=== PATIENT | male | born 1970 | race Caucasian/White ===

== ENCOUNTER → 2018-02-05 09:18 | Outpatient (CLI) | payer MEDICAID, SELFPAY ==
--- NOTE | 2018-02-05 09:20 | US_ITS ---
US abdomen limited Ordering Physician: Kit Velazquez MD Patient Age: 47 years: Male HISTORY: ITS.REASON: Right upper quad pain TECHNIQUE: Ultrasound RUQ abdomen. COMPARISON :None FINDINGS Pancreas. Limited visualization but what is seen at head and body and medial tail the pancreas appears satisfactory Liver. No focal lesions no biliary ductal dilatation. Portal vein normal direction flow Gallbladder. Minimal Sludge gallbladder but no calcified or shadowing stones. ... Gallbladder upper are normal size measuring 7.5 cm-8 length.. No wall thickening Right kidney unremarkable. Normal Size measuring 10 cm length. IMPRESSION: No gallstones.. Only scant Sludge in the gallbladder. Otherwise unremarkable RUQ ultrasound
== END ==
PROVIDERS: Family Provider Emergency Medicine; PCP Emergency Medicine; Visit Provider Emergency Medicine
DX: R10.11 Right upper quadrant pain (principal)
CPT/HCPCS: 76705

== ENCOUNTER 2020-09-10 03:54 | Emergency (ER) | payer OTHER, SELFPAY ==
[2020-09-10] VITALS (7 sets, daily range): BP systolic 149–202; BP diastolic 83–140; PULSE 90–110; RESP 16–19; TEMP 36.7–36.8; O2SAT 97–100; BMI 26.6
--- NOTE | 2020-09-10 03:59 | CT_ITS ---
PROCEDURE: CT HEAD/BRAIN WO CON CLINICAL INDICATION: ams Altered mental status, altered level of consciousness, confusion, disorientation COMPARISON: No exams were available for comparison TECHNIQUE: Axial images obtained. All CT scans at the facility use one or more dose reduction, viz: automated exposure control, ma/kV adjustment per patient size (including targeted exams where dose is matched to indication, i.e. head), or iterative reconstruction technique. FINDINGS: There are low-density changes present in the left temporal lobe anteriorly. No underlying hemorrhage. No midline shift. No evidence of hydrocephalus. There is moderate mucosal thickening of the ethmoid sinuses on both sides there is an air-fluid level in the right maxillary sinus with mild bilateral maxillary sinus mucosal thickening and mild sphenoid sinus mucosal thickening. Mastoid sinuses have an unremarkable appearance. No calvarial abnormalities apparent. There is also mucosal thickening in the frontal sinuses having a somewhat lobular contour. IMPRESSION: Low-density changes in the left temporal lobe. This could be due to an underlying infarction or a space occupying lesion with edema. Suggest enhanced head CT in ER setting. No acute intracranial hemorrhage. MRI of the brain without and with contrast may eventually be needed. Sinus disease Dictated by: Tigre Dickinson MD 09/10/2020 05:51 Tigre Dickinson MD in [facility] 09/10/2020 05:51
--- NOTE | 2020-09-10 03:59 | XR_ITS ---
PROCEDURE: XR CHEST PORTABLE CLINICAL HISTORY: ams History of heart disease, history of recurrent chest pain unstable angina COMPARISON: CR CXR CHEST(2 VIEWS-NOT PORTABLE) from 06/12/2016 CR CXR CHEST(2 VIEWS-NOT PORTABLE) from 10/10/2016 CR CXR CHEST(2 VIEWS-NOT PORTABLE) from 06/09/2017 FINDINGS: The cardiomediastinal silhouette and pulmonary vascularity are within normal limits. The lungs are clear without infiltrates, suspicious nodules, or pleural effusions. No acute bony abnormalities. IMPRESSION: No acute findings. Dictated by: Tigre Dickinson MD 09/10/2020 05:14 Tigre Dickinson MD in [facility] 09/10/2020 05:14
--- NOTE | 2020-09-10 04:05 | PC.NURSE ---
restraints placed due to multiple attempts to swing and hit at staff, pull out IV's and F/C despite redirection attempts. pt continues to yell, kick and hit, cursing staff. one on one observation at this time. residential housekeeper notified
[2020-09-10 04:09] LABS: Microscopic, Urine URINE MICROSCOPIC (MICROSCOPIC)
[2020-09-10 04:16] LABS: Basophils # 0.1 K/mm3 (0-0.2); Basophils % 0.7 % (0.1-2.0); Eosinophils # 0.2 K/mm3 (0.0-0.4); Eosinophils % 1.4 % (0.1-12.0); Hematocrit 49.4 % (42.0-52.0); Lymphocytes # 1.3 K/mm3 (0.7-4.5); Lymphocytes % 9.3 % (10-50); Mean Corpuscular HGB Conc 32.4 g/dL (31.8-35.4); Mean Corpuscular Hemoglobin 28.7 pg (27.0-31.2); Mean Corpuscular Volume 88.5 fl (80-94); Monocytes # 0.6 K/mm3 (0.1-1.0); Monocytes % 4.1 % (1.7-9.3); Neutrophils # 11.8 K/mm3 (1.8-7.8); Neutrophils % 84.5 % (37.0-80.0); Platelet Count 373 K/mm3 (142-424); Red Blood Count 5.58 M/mm3 (4.60-6.20); Red Cell Distribution Width 12.8 % (11.5-17.5); White Blood Count 13.9 K/mm3 (4.8-10.8)
[2020-09-10 04:19] LABS: Chloride 104 mmol/L (98-107); Potassium 4.5 mmoL/L (3.5-5.1); Sodium 142 mmol/L (136-145)
--- NOTE | 2020-09-10 04:19 | PC.NURSE ---
patient eating ice chips,
[2020-09-10 04:20] LABS: Appearance,Urine CLEAR (Clear); Bilirubin,Urine Negative (Negative); Blood, Urine 1+ (Negative); Color,Urine YELLOW (Yellow); Glucose,Urine (UA) Negative (Negative); Ketones,Urine Negative (Negative); Leukocyte Esterase,Urine Negative (Negative); Nitrate,Urine Negative (Negative); PH,Urine 5.5 (5.0-8.5); Protein,Urine Negative (Negative); Specific Gravity, Urine 1.025 (1.005-1.030); Urobilinogen,Urine 0.2 EU/dl (0.2)
[2020-09-10 04:21] LABS: Blood Urea Nitrogen 10 mg/dl (9-20); Creatinine Clearance Estimated 101 mL/min (50-200); Estimated Glomerular Filt Rate 80 ml/min (>60); GFR (African American) 97 ML/MIN (>60)
[2020-09-10 04:22] LABS: Alanine Aminotransferase 26 U/L (12-78); Albumin Level 5.2 g/dl (3.5-5.0); Albumin/Globulin Ratio 1.5 (1.1-1.8); Alkaline Phosphatase 92 U/L (38-126); Anion Gap 26.5 mEq/L (5-15); Aspartate Amino Transferase 33 U/L (17-59); Bilirubin,Total 0.4 mg/dl (0.2-1.3); Calcium 9.7 mg/dl (8.4-10.2); Carbon Dioxide 16 mmol/L (22.0-30.0); Globulin 3.5 g/dL (1.3-3.2); Glucose 123 mg/dl (74-100); Total Protein,Serum 8.7 g/dl (6.3-8.2)
[2020-09-10 04:23] LABS: Acetaminophen < 10 ug/ml (10-30); Salicylate < 1.0 mg/dL (2.0-20.0)
[2020-09-10 04:24] LABS: Ethyl Alcohol < 10 mg/dl (0-10)
[2020-09-10 04:28] LABS: C-Reactive Protein 1.6 mg/L (0-4)
[2020-09-10 04:30] LABS: Barbiturates Screen,Urine Negative ng/ml (<200); Benzodiazepines Screen,Urine Positive ng/ml (<200)
[2020-09-10 04:32] LABS: Cannabinoid Screen,Urine Positive ng/ml (<50); Methadone Screen,Urine Negative ng/ml (<300)
[2020-09-10 04:33] LABS: Cocaine Screen,Urine Negative ng/ml (<300)
[2020-09-10 04:34] LABS: Lactic Acid 11.4 mmol/L (0.7-2.1)
[2020-09-10 04:35] LABS: Opiate Screen,Urine Negative ng/ml (<300); Phencyclidine Screen,Urine Negative ng/ml (<25)
[2020-09-10 04:39] LABS: Coronavirus 19 IgG Antibody Negative (Negative); Coronavirus 19 IgM Antibody Negative (Negative)
[2020-09-10 04:40] LABS: Mucus,Urine 1+ /lpf
--- NOTE | 2020-09-10 04:45 | PC.NURSE ---
restraints removed at this time. good removed at this time.
[2020-09-10 04:49] LABS: Procalcitonin 0.052 ng/mL (0.0-2.0)
[2020-09-10 04:50] LABS: Troponin I < 0.01 ng/ml (0.00-0.034)
--- NOTE | 2020-09-10 04:58 | PC.NURSE ---
is at bedside w/ pt/.
[2020-09-10 05:22] LABS: Erythrocyte Sedimentation Rate 13 mm/hr (0-15)
--- NOTE | 2020-09-10 05:28 | PC.NURSE ---
pt taken to ct at this time via stretcher. third loader assisting rad due to patient's presentation.
--- NOTE | 2020-09-10 05:43 | PC.NURSE ---
back from ct at this time.
--- NOTE | 2020-09-10 05:49 | CT_ITS ---
PROCEDURE: CT HEAD/BRAIN W CON CLINICAL INDICATION: altered mental status Abnormal head CT with stroke versus mass in the left temporal lobe COMPARISON: CT CT HEAD/BRAIN WO CON from 09/10/2020 TECHNIQUE: IV Contrast: 100ML Isovue 370 Axial images obtained. All CT scans at the facility use one or more dose reduction, viz: automated exposure control, ma/kV adjustment per patient size (including targeted exams where dose is matched to indication, i.e. head), or iterative reconstruction technique. FINDINGS: Enhanced head CT is performed to further evaluate the low-density changes in the left temporal lobe. There remains low-density changes in the left temporal lobe. No enhancing mass is evident. There is prominence of the vascularity peripheral to low-density changes in the left temporal lobe suggesting luxury perfusion from subacute infarction. There is no midline shift. No other abnormal areas of enhancement are evident. Sinus disease once again noted. IMPRESSION: Low-density changes in the left temporal lobe once again noted with luxury perfusion consistent with subacute infarction. Dictated by: Tigre Dickinson MD 09/10/2020 06:33 Tigre Dickinson MD in [facility] 09/10/2020 06:33
--- NOTE | 2020-09-10 05:51 | HMH.EDAMS ---
ED Disposition Clinical Impression: Acute drug intoxication with delirium, Amphetamine abuse CVA (cerebral vascular accident) Qualifiers: CVA mechanism: unspecified Qualified Code(s): I63.9 - Cerebral infarction, unspecified Disposition: Home, Self-Care Condition on Discharge: Fair Instructions: DI for Altered Mental Status Additional Instructions: see pcp for follow up Referrals: Kit Velazquez MD [Primary Care Provider] - - Critical Care Critical Care Time: No Attestation: On 09/10/20, the high probability of a clinically significant, sudden or life threatening deterioration of the following system(s) required my full and direct attention, intervention and personal management. The time I documented below is in addition to time spent performing reported procedures but includes the following listed in this critical care notation. Medical Decision Making - Medical Records Medical records reviewed: Yes: I reviewed the patient's medical records. - Pancho Inquiry Pt receiving controlled substance: No Vital Signs: 09/10/20 03:45 09/10/20 04:33 09/10/20 05:00 Temperature 98.2 F Temperature Source Oral Pulse Rate [Right Brachial] 110 H 110 H 98 H Respiratory Rate 16 16 17 Blood Pressure [Right Arm] 149/83 H 202/140 H 156/100 H Blood Pressure Mean [Right Arm] 105 160 118 Blood Pressure Source [Right Arm] Automatic Cuff Automatic Cuff Blood Pressure Position [Right Arm] Sitting Sitting Sitting 02 Sat by Pulse Oximetry 98 98 97 Oxygen Delivery Method Room Air Room Air Room Air 09/10/20 05:30 09/10/20 06:03 09/10/20 06:30 Temperature Temperature Source Pulse Rate [Right Brachial] 98 H 90 90 Respiratory Rate 19 18 19 Blood Pressure [Right Arm] 155/92 H 162/84 H 180/110 H Blood Pressure Mean [Right Arm] 113 110 133 Blood Pressure Source [Right Arm] Automatic Cuff Automatic Cuff Blood Pressure Position [Right Arm] Sitting Supine 02 Sat by Pulse Oximetry 100 98 99 Oxygen Delivery Method Room Air Room Air - Lab Data Lab results reviewed: Yes: I reviewed the patient's lab results. Lab Results 09/10/20 03:45: Urine Color Yellow, Urine Appearance Clear, Urine pH 5.5, Ur Specific Floweree 1.025, Urine Protein Negative, Urine Glucose (UA) Negative, Urine Ketones Negative, Urine Blood 1+, Urine Nitrate Negative, Urine Bilirubin Negative, Urine Urobilinogen 0.2, Ur Leukocyte Esterase Negative, Urine RBC 3-5, Urine Mucus 1+ 09/10/20 03:45: WBC 13.9 H, RBC 5.58, Hgb 16.0, Hct 49.4, MCV 88.5, MCH 28.7, MCHC 32.4, RDW 12.8, Plt Count 373, MPV 7.0 L, Neut % (Auto) 84.5 H, Lymph % (Auto) 9.3 L, Isabella % (Auto) 4.1, Eos % (Auto) 1.4, Baso % (Auto) 0.7, Neut # (Auto) 11.8 H, Lymph # (Auto) 1.3, Isabella # (Auto) 0.6, Eos # (Auto) 0.2, Baso # (Auto) 0.1, ESR 13 09/10/20 03:45: Sodium 142, Potassium 4.5, Chloride 104, Carbon Dioxide 16 L, Anion Gap 26.5 H, BUN 10, Creatinine 1.00, Estimated Creat Clear 101, Estimated GFR 80, Est GFR ( Amer) 97, Glucose 123 H, Calcium 9.7, Total Bilirubin 0.4, AST 33, ALT 26, Alkaline Phosphatase 92, Troponin I < 0.01, C-Reactive Protein 1.6, Total Protein 8.7 H, Albumin 5.2 H, Globulin 3.5 H, Albumin/Globulin Ratio 1.5, Procalcitonin 0.052, Salicylates < 1.0 L, Acetaminophen < 10 L 09/10/20 03:45: Lactate 11.4 H 09/10/20 03:45: SARS-CoV-2 IgG Ab (Rapid) Negative, SARS-CoV-2 IgM Ab (Rapid) Negative 09/10/20 03:45: Urine Opiates Screen Negative, Urine Methadone Screen Negative, Ur Barbituates Screen Negative, Ur Phencyclidine Scrn Negative, Ur 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
[2020-09-10 08:08] LABS: Reflex Lactic Add Lactic Reflex
== END 2020-09-10 07:20 | disposition home or self-care (01) ==
PROVIDERS: Emergency Provider Emergency Medicine; PCP Emergency Medicine
DX: I63.9 Cerebral infarction, unspecified (principal); F15.121 Other stimulant abuse with intoxication delirium; F12.10 Cannabis abuse, uncomplicated; M54.5 Low back pain; K21.9 Gastro-esophageal reflux disease without esophagitis; I10 Essential (primary) hypertension; Z01.84 Encounter for antibody response examination; Z79.899 Other long term (current) drug therapy
CPT/HCPCS: 70450; 70460; 71045; 80053; 80305; 80324; 80329; 81001; 83605; 84145; 84484; 85025; 85651; 86140; 86328; 87040; 87077; 96365; 99284; Q9967

== ENCOUNTER → 2020-10-05 12:42 | Outpatient (CLI) | payer OTHER, SELFPAY ==
--- NOTE | 2020-10-05 12:44 | CA_ITS ---
APPROVED REPORT Cloth Printer: CT Laterality: Bilateral Indications: syncope, cva Risk Factors Hypertension: TIA/CVA History Doppler Spectral Velocity Analysis ECA (R) 87.30/ cm/s ECA (L) 126.00/ cm/s dICA (R) 89.30/47.50 cm/s dICA (L) 79.60/41.10 cm/s Saúl (R) 84.10/43.00 cm/s Saúl (L) 81.50/46.20 cm/s pICA (R) 95.70/48.20 cm/s pICA (L) 83.50/38.50 cm/s dCCA (R) 66.80/26.30 cm/s dCCA (L) 99.50/35.20 cm/s pCCA (R) 117.60/36.40 cm/s pCCA (L) 107.70/37.40 cm/s Vert (R) 39.70/ cm/s Vert (L) 36.20/ cm/s ICA/CCA 1.40 ICA/CCA 0.80 Findings Duplex evaluation demonstrates stenosis of the right proximal internal carotid artery <20% with PSV <140 cm/sec, EDV <100 cm/sec, and IC/CC Ratio <4.0. Duplex evaluation demonstrates stenosis of the left proximal internal carotid artery <20% with PSV <140 cm/sec, EDV <100 cm/sec, and IC/CC Ratio <4.0. Duplex evaluation demonstrates antegrade flow of the bilateral Vertebral Arteries. Conclusion Duplex evaluation demonstrates stenosis of the right proximal internal carotid artery <20% with PSV <140 cm/sec, EDV <100 cm/sec, and IC/CC Ratio <4.0. Duplex evaluation demonstrates stenosis of the left proximal internal carotid artery <20% with PSV <140 cm/sec, EDV <100 cm/sec, and IC/CC Ratio <4.0. Duplex evaluation demonstrates antegrade flow of the bilateral Vertebral Arteries. Electronically signed by : Ivan Chester MD 10/06/2020 19:59:40
== END ==
PROVIDERS: PCP Emergency Medicine; Visit Provider Emergency Medicine
DX: R55 Syncope and collapse (principal); I63.9 Cerebral infarction, unspecified
CPT/HCPCS: 93880

== ENCOUNTER → 2020-11-14 08:05 | Outpatient (CLI) | payer OTHER, SELFPAY ==
--- NOTE | 2020-11-14 08:09 | MR_ITS ---
PROCEDURE: MR THORACIC SPINE WO CON CLINICAL INDICATION: back pain COMPARISON: CR CXR CHEST(2 VIEWS-NOT PORTABLE) from 06/09/2017 TECHNIQUE: Routine multiplanar multi echo sequences are performed without gadolinium enhancement. FINDINGS: There is normal alignment. Moderate wedge compression changes are present involving the T5 vertebral body. There is loss of height anteriorly of approximately 50 percent. The mid and anterior aspect of the T5 vertebral body shows decreased T1 and slight increase in T2 signal. There is no retropulsion. There is however a small hypointense area of isointensity anterior to the cord and lying along the posterior aspect of the T5 vertebral body centrally. This measures approximately 6 x 3 mm. This does not appear to connect to the disc space being in the mid aspect of the vertebral body. This does abut the anterior aspect of the cord without displacement or compression. There is minimal concavity along the superior endplate of T6 and mild concavity along the superior endplate of T8 with slight increase in T2 signal of the superior endplates. There is degenerative disc disease at T11-T12 with mild bulging disc which is eccentric toward the right with mild facet and ligamentum hypertrophy causing mild right lateral recess and foraminal narrowing. IMPRESSION: 1. Moderate wedge compression changes of T5 which appears subacute. Minimal concavity superior endplate of T6 and T8 which also appears subacute. No retropulsion. 2. Small extradural isointensity along the posterior aspect of the T5 vertebral body centrally abutting the cord without displacement etiology indeterminate possibly due to small disc fragment 3. There is degenerative disc disease at T11-T12 with mild bulging disc which is eccentric toward the right with mild facet and ligamentum hypertrophy causing mild right lateral recess and foraminal narrowing Dictated by: Tigre Dickinson MD 11/16/2020 06:30 Tigre Dickinson MD in [facility] 11/16/2020 06:30
== END ==
PROVIDERS: PCP Emergency Medicine; Visit Provider Emergency Medicine
DX: M54.9 Dorsalgia, unspecified (principal); M54.6 Pain in thoracic spine
CPT/HCPCS: 72146

== ENCOUNTER → 2021-01-18 08:54 | Outpatient (POV) | payer OTHER, SELFPAY ==
[2021-01-18 09:15] VITALS: BP 149/98; PULSE 71; RESP 18; O2SAT 98; BMI 29.0
--- NOTE | 2021-01-18 11:44 | HMH.PMCON ---
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 We will see him back in 6 weeks reassess his symptoms at that time he has been instructed to call the office if he has any issues prior to the next appointment. At this time he is not interested in any injective therapy. I did discuss with him if that changes he is welcome to give us a call. Dr. Muro has reviewed this note and agrees with this plan of care. This note was dictated using voice recognition software and may contain errors or omissions HPI - Data of Consult Consult date: 01/18/21 Requesting Physician: Liliana Perez APRN Primary Care Provider: Kit Velazquez MD - Consult Narrative Reason for consult: Back pain History of present illness: Mr. Bellamy is a 50 year old male who presents today for consultation regards to his thoracic back pain. Patient rates his pain today an 8 out of 10. Mostly in his mid back and around his chest. He does have a subacute thoracic T5 compression fracture. Patient has not taken any conservative measures in regards to his pain. Patient is uninterested in medications at this time due to history of addiction. CC: Liliana Perez APRN [facility] History I have reviewed the patient's past medical history: Yes Medical History: Reports:: Gastroesophageal Reflux Disease(GERD), Hyperlipidemia, Hypertension Denies:: Cancer, Diabetes Mellitus Type 1, Diabetes Mellitus Type 2, MRSA *Have you ever received a pneumonia vaccine?: Yes *Have you received a flu vaccine this season?: Yes Other Medical History: Reports: Arthritis Other Surgeries: Yes: No Previous Surgery, Other Amputation: No Fractures: No - *Social History Smoking Status: Current every day smoker Tobacco Type: smokeless tobacco # Packs/Day (cigarettes): 1 Alcohol Intake: never Alcohol Intake Frequency:: holidays/special occasions only Substance Use Type: painkillers, prescription drug Last Used Substance: unknown *Occupational Status:: other Housing: house Household Members: other *Travel in the last 8 weeks: None Family Hx:: Unable to obtain Review of Systems - Review of Systems ROS General: no recent weight change, no fever, no sleep disturbances Respiratory: no cough, no shortness of air, no recurring pulmonary infections Cardiovascular/Peripheral Vascular: No chest pain, No palpitations, no edema, no shortness of breath. Gastrointestinal: no new onset incontinence, normal bowel movements reported Genitourinary: no new onset incontinence Musculoskeletal: Back pain Psychiatric: normal mood/ affect Neurological: [denies new onset weakness in extremities], [denies new onset balance issues] Meds Home Medications Medication Instructions Recorded Confirmed Type albuterol sulfate 90 mcg/actuation 2 puff INHALATION Q4-6H PRN #18 g 10/08/20 11/02/20 Rx aerosol inhaler levetiracetam 500 mg tablet 500 mg PO BID #60 tab 10/20/20 11/02/20 Rx lisinopril 10 mg tablet 10 mg PO DAILY #90 tab 11/02/20 11/02/20 Rx pantoprazole 40 mg tablet,delayed 40 mg PO DAILY #90 tab 11/02/20 11/02/20 Rx release methylprednisolone 4 mg tablets in See Rx Instructions PO PER PKG DIR 12/09/20 Rx a dose pack #21 tab Allergies Allergy/AdvReac Type Severity Reaction Status Date / Time No Known Allergies Allergy Verified 11/02/20 09:26 Objective Vital signs: Pulse Resp BP Pulse Ox 71 18 149/98 H 98 01/18/21 09:15 01/18/21 09:15 01/18/21 09:15 01/18/21 09:15 Narrative: Physical Exa
== END ==
PROVIDERS: PCP Emergency Medicine; Visit Provider Clinical Nurse Specialist Family Health
DX: S22.000A Wedge compression fracture of unspecified thoracic vertebra, initial encounter for closed fracture (principal); M47.814 Spondylosis without myelopathy or radiculopathy, thoracic region
CPT/HCPCS: 99202; G0463

== ENCOUNTER 2021-01-21 08:48 | Outpatient (RCR) | payer OTHER, SELFPAY ==
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
== END 2021-02-18 11:10 | disposition home or self-care (01) ==
LOC: PT.CARL 08:48
PROVIDERS: PCP Emergency Medicine; Visit Provider Clinical Nurse Specialist Family Health
DX: M54.6 Pain in thoracic spine (principal)
CPT/HCPCS: 97010; 97014; 97110; 97140; 97163; G0283

== ENCOUNTER → 2021-04-26 09:54 | Outpatient (CLI) | payer OTHER, SELFPAY ==
--- NOTE | 2021-04-26 09:54 | MR_ITS ---
PROCEDURE: MR HEAD/BRAIN WO CON CLINICAL INDICATION: seizure disorder COMPARISON: CT CT HEAD/BRAIN WO CON from 09/10/[address] HEAD/BRAIN W CON from 09/10/2020 TECHNIQUE: Multiplanar, multisequence MRI brain performed without contrast FINDINGS: No restricted diffusion is present to suggest an acute infarct. There is evidence of focal T2 and FLAIR hyperintensity noted in the left temporal lobe, as noted on the prior CT of September 10, 2020. There is no evidence of significant mass effect or encephalomalacia. This was noted on the prior CT of September 10, 2020. There is sparing of the hippocampus and the medial temporal lobe. No evidence of sparing of the quiroga-white matter is noted. Focal T2 hyperintensity is noted in the periventricular and subcortical white matter. There is no space-occupying or enhancing mass lesion and no abnormal fluid collection. there is no evidence of hemorrhage. Ventricles: The Ventricles are within noraml limits for size, configuration, and symmetry. Volume: Brain parenchymal volume is appropriate for age. Osseous: Osseous structures are unremarkable. Sinuses: Mucous retention cyst is noted in the left maxillary sinus. Minor mucosal thickening of the bilateral maxillary, frontal and ethmoidal sinuses Mastoids: Unremarkable IMPRESSION: T2 and FLAIR hyperintensity in the left temporal lobe without evidence of encephalomalacia. No significant mass effect is noted. Sparing of the hippocampi and the medial temporal lobe noted. The differential diagnosis would include focal encephalitis, gliosis but other disease processes including gliomatosis and infarction cannot be completely excluded. MRI of the brain with contrast may be useful in further evaluation. Dictated by: Ann Myles 04/26/2021 11:42 Ann Myles in [facility] 04/26/2021 11:42
== END ==
PROVIDERS: PCP Physician Assistant; Visit Provider Physician Assistant
DX: I69.398 Other sequelae of cerebral infarction (principal)
CPT/HCPCS: 70551

== ENCOUNTER → 2021-05-20 12:57 | Outpatient (CLI) | payer OTHER, SELFPAY ==
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
== END ==
PROVIDERS: PCP Physician Assistant; Visit Provider Physician Assistant
DX: R90.89 Other abnormal findings on diagnostic imaging of central nervous system (principal); R56.9 Unspecified convulsions
CPT/HCPCS: 70553; A9576

== ENCOUNTER → 2021-10-11 15:21 | Outpatient (CLI) | payer OTHER, SELFPAY ==
--- NOTE | 2021-10-11 15:22 | MR_ITS ---
FINAL REPORT CLINICAL HISTORY: LBP, numbness left leg, h/o brain tumor (?glioma). lt sided lbp with lt leg pain, numbness, and tingling. lt leg instability. symptoms xyrs. no injury or trauma. FINDINGS: Multiplanar MR imaging of the lumbar spine was performed without contrast. On the sagittal T2-weighted images, there is abnormal decreased signal in the L5-S1 disc. The vertebrae are of normal height. The vertebral alignment is normal. L1-2: There is no significant canal stenosis or neural foraminal narrowing. L2-3: There is no significant canal stenosis or neural foraminal narrowing. L3-4: There is no significant canal stenosis or neural foraminal narrowing. L4-5: There is no significant canal stenosis or neural foraminal narrowing. L5-S1: There is a mild broad-based midline disc protrusion with mild spinal canal stenosis. IMPRESSION: Mild broad-based midline disc protrusion with mild spinal canal stenosis at L5-S1. Reviewed, Interpreted and Dictated by Clement Abraham MD Transcribed by Jerry Horne Authenticated by Clement Abraham MD on 10/11/2021 04:58:26 PM [facility]
== END ==
PROVIDERS: PCP Physician Assistant; Visit Provider Physician Assistant
DX: M54.50 Low back pain, unspecified (principal); R20.0 Anesthesia of skin; Z87.898 Personal history of other specified conditions
CPT/HCPCS: 72148; 76376

== ENCOUNTER → 2022-10-25 16:00 | Outpatient (CLI) | payer OTHER, SELFPAY ==
[2022-10-25 19:18] LABS: Basophils # 0.1 K/mm3 (0-0.2); Basophils % 0.8 % (0.1-2.0); Eosinophils # 0.2 K/mm3 (0.0-0.4); Hemoglobin 14.1 g/dL (14.1-18.0); Lymphocytes # 1.8 K/mm3 (0.7-4.5); Lymphocytes % 24.3 % (10-50); Mean Corpuscular HGB Conc 32.9 g/dL (31.8-35.4); Mean Corpuscular Hemoglobin 28.2 pg (27.0-31.2); Mean Corpuscular Volume 85.7 fl (80-94); Mean Platelet Volume 7.6 fl (7.4-10.4); Monocytes # 0.5 K/mm3 (0.1-1.0); Monocytes % 6.1 % (1.7-9.3); Neutrophils # 4.9 K/mm3 (1.8-7.8); Neutrophils % 65.8 % (37.0-80.0); Platelet Count 395 K/mm3 (142-424); Red Blood Count 5.01 M/mm3 (4.60-6.20); Red Cell Distribution Width 13.2 % (11.5-17.5); White Blood Count 7.4 K/mm3 (4.8-10.8)
[2022-10-25 20:51] LABS: Alanine Aminotransferase 21 U/L (12-78); Albumin Level 4.4 g/dl (3.5-5.0); Albumin/Globulin Ratio 1.4 (1.1-1.8); Alkaline Phosphatase 106 U/L (38-126); Anion Gap 10.5 mEq/L (5-15); Aspartate Amino Transferase 25 U/L (17-59); Bilirubin,Total 0.2 mg/dl (0.2-1.3); Blood Urea Nitrogen 13 mg/dl (9-20); Calcium 8.6 mg/dl (8.4-10.2); Carbon Dioxide 32 mmol/L (22.0-30.0); Chloride 101 mmol/L (98-107); Estimated Glomerular Filt Rate 119 ml/min (>60); GFR (African American) 144 ML/MIN (>60); Globulin 3.2 g/dL (1.3-3.2); Glucose 76 mg/dl (74-100); Potassium 4.5 mmoL/L (3.5-5.1); Sodium 139 mmol/L (136-145); Total Protein,Serum 7.6 g/dl (6.3-8.2)
[2022-10-25 21:09] LABS: 25-OH Vitamin D, Total 22.6 ng/mL (30-100)
[2022-10-25 21:22] LABS: Prostate Specific Ag Screen 0.8 ng/ml (0.0-4.0); Thyroid Stimulating Hormone 1.67 uIU/mL (0.465-4.68)
[2022-10-28 12:47] LABS: Levetiracetam (Keppra) <2.0 ug/mL (10.0-40.0)
== END ==
PROVIDERS: PCP Physician Assistant; Visit Provider Physician Assistant
DX: Z00.00 Encounter for general adult medical examination without abnormal findings (principal); G40.909 Epilepsy, unspecified, not intractable, without status epilepticus; E55.9 Vitamin D deficiency, unspecified; Z51.81 Encounter for therapeutic drug level monitoring; Z12.5 Encounter for screening for malignant neoplasm of prostate
CPT/HCPCS: 80053; 80177; 82306; 84443; 85025; G0103

== ENCOUNTER 2023-10-12 10:28 | Outpatient (CLI) | payer OTHER, SELFPAY ==
[2023-10-12 19:29] LABS: 25-OH Vitamin D, Total 28.3 ng/mL (30-100)
[2023-10-12 19:59] LABS: Basophils # 0.1 K/mm3 (0-0.2); Eosinophils # 0.2 K/mm3 (0.0-0.4); Eosinophils % 3.1 % (0.1-12.0); Hematocrit 42.7 % (42.0-52.0); Hemoglobin 14.4 g/dL (14.1-18.0); Lymphocytes # 2.3 K/mm3 (0.7-4.5); Lymphocytes % 29.8 % (10-50); Mean Corpuscular HGB Conc 33.7 g/dL (31.8-35.4); Mean Corpuscular Hemoglobin 29.2 pg (27.0-31.2); Mean Corpuscular Volume 86.7 fl (80-94); Mean Platelet Volume 7.7 fl (7.4-10.4); Monocytes # 0.4 K/mm3 (0.1-1.0); Monocytes % 5.6 % (1.7-9.3); Neutrophils # 4.6 K/mm3 (1.8-7.8); Neutrophils % 60.4 % (37.0-80.0); Platelet Count 347 K/mm3 (142-424); Red Blood Count 4.92 M/mm3 (4.60-6.20); Red Cell Distribution Width 13.4 % (11.5-17.5); White Blood Count 7.7 K/mm3 (4.8-10.8)
[2023-10-12 20:10] LABS: Alanine Aminotransferase 18 U/L (12-78); Albumin Level 4.1 g/dl (3.5-5.0); Albumin/Globulin Ratio 1.4 (1.1-1.8); Alkaline Phosphatase 103 U/L (38-126); Anion Gap 7.2 mEq/L (5-15); Aspartate Amino Transferase 24 U/L (17-59); Bilirubin,Total 0.2 mg/dl (0.2-1.3); Blood Urea Nitrogen 12 mg/dl (9-20); Calcium 8.3 mg/dl (8.4-10.2); Carbon Dioxide 35 mmol/L (22.0-30.0); Chloride 98 mmol/L (98-107); Chol/HDL Ratio 4.4 (1-3.5); Cholesterol 201 mg/dl (140-200); Estimated Glomerular Filt Rate 102 ml/min (>60); GFR (African American) 123 ML/MIN (>60); Glucose 73 mg/dl (74-100); HDL Cholesterol 46 mg/dl (40-60); Phenytoin (Dilantin) 4.1 ug/ml (10-20); Potassium 4.2 mmoL/L (3.5-5.1); Sodium 136 mmol/L (136-145); Total Protein,Serum 7.1 g/dl (6.3-8.2); Triglycerides 64 mg/dl (30-150); VLDL Cholesterol 13 mg/dL (0-40)
[2023-10-12 20:27] LABS: Direct LDL Cholesterol 123.34 mg/dL (100-129)
[2023-10-12 21:00] LABS: Thyroid Stimulating Hormone 1.19 uIU/mL (0.465-4.68)
== END 2023-10-12 23:59 ==
LOC: LAB.DROPOF 10-13 10:44
PROVIDERS: PCP Physician Assistant; Visit Provider Physician Assistant
DX: G40.909 Epilepsy, unspecified, not intractable, without status epilepticus (principal); I10 Essential (primary) hypertension; E55.9 Vitamin D deficiency, unspecified; Z51.81 Encounter for therapeutic drug level monitoring; Z79.899 Other long term (current) drug therapy
CPT/HCPCS: 80053; 80061; 80185; 82306; 84443; 85025

== ENCOUNTER 2023-12-19 14:17 | Emergency (ER) | payer OTHER, SELFPAY ==
[2023-12-19 14:18] VITALS: BP 142/93; PULSE 103; RESP 18; TEMP 36.6; O2SAT 98; BMI 25.0
--- NOTE | 2023-12-19 14:27 | ED_ITS ---
Discharge Plan Disposition Patient Disposition: Home, Self-Care Prescriptions Prescriptions: New prednisone 20 mg tablet 40 mg PO DAILY 5 Days Qty: 10 0RF No Action albuterol sulfate 90 mcg/actuation HFA aerosol inhaler See Rx Instructions .ROUTE .COMPLEX Qty: 8.5 3RF Dose Instruction: 2 PUFF INHALATION EVERY 4 TO 6 HOURS NEEDED FOR SHORTNESS OF BREATH OR WHEEZING Rx Instructions: 2 PUFF INHALATION EVERY 4 TO 6 HOURS NEEDED FOR SHORTNESS OF BREATH OR WHEEZING (DME) Blood Pressure Cuff Misc See Rx Instructions .Route Qty: 1 0RF Rx Instructions: As directed pantoprazole 40 mg tablet,delayed release (DR/EC) 40 mg PO DAILY Qty: 90 3RF phenytoin sodium extended 100 mg capsule 100 mg PO QID 90 Days Qty: 360 1RF cholecalciferol (vitamin D3) 50 mcg (2,000 unit) capsule 50 mcg PO DAILY Qty: 90 3RF ergocalciferol (vitamin D2) 1,250 mcg (50,000 unit) capsule 1,250 mcg PO WEEKLY Qty: 14 3RF Referrals Follow up/Referrals: Provider,Referral, MD [Referring] - See instructions Activity Restrictions/Add. Instructions Additional Instructions/Restrictions: Call your family doctor to establish care for this visit to the emergency department and schedule follow-up within 48 hours to ensure improvement. If you have any worsening of your condition or any other concerning signs or symptoms, return to the emergency department or your primary care doctor for further evaluation. Take prednisone every day for 5 days in the morning. You can buy Voltaren (diclofenac) [id number] and use on your elbow for further relief. Clinical Impressions Clinical Impression: Epicondylitis elbow, medial Discharge ED Provider: Juan Garcia General Adult HPI <MELLISSA Arredondo - Last Filed: 12/19/23 14:34> General Chief complaint: PAIN Stated complaint: Rt elbow pain, no accident Time Seen by Provider: 12/19/23 14:24 Related Data Previous Rx's Medication Instructions Recorded albuterol sulfate 90 mcg/actuation See Rx Instructions .Route 10/25/22 aerosol inhaler .COMPLEX #8.5 grams miscellaneous medical supply #1 ea 10/25/22 (Blood Pressure Cuff) pantoprazole 40 mg tablet,delayed 40 mg PO DAILY #90 tabs 09/22/23 release cholecalciferol (vitamin D3) 50 50 mcg PO DAILY #90 caps 10/13/23 mcg (2,000 unit) capsule ergocalciferol (vitamin D2) 1,250 1,250 mcg PO WEEKLY #14 caps 10/13/23 mcg (50,000 unit) capsule phenytoin sodium extended 100 mg 100 mg PO QID 3 months #360 caps 10/13/23 capsule prednisone 20 mg tablet 40 mg (2 x 20 mg) PO DAILY 5 days 12/19/23 #10 tabs Allergies Allergy/AdvReac Type Severity Reaction Status Date / Time No Known Allergies Allergy Verified 10/12/23 14:18 <Juan Garcia MD - Last Filed: 12/19/23 14:35> History of Present Illness HPI narrative: 53-year-old male history of left-sided temporal lobe glioma presenting with right elbow pain. Patient said that his neurologist who told him to come to the emergency department because the left side of the brain controls the right side of body and there may be a complication. Patient states that this has been hurting him for about a month. Its on the middle of his elbow hurts when he drinks coffee, plays golf, and externally rotates his arm. No trauma to the area. Neurovascularly intact [facility] <MELLISSA Arredondo - Last Filed: 12/19/23 14:34> [facility] Disclaimer: The information contained in this section may have been updated after the patient was seen, as this information can be updated by other users. Medical History Acute drug intoxication with delirium Amphetamine abuse CVA (cerebral vascular accident) Degenerative joint disease of thoracic spine Thoracic compression fracture Social History Smoking Status: Former smoker tobacco type: smokeless tobacco alcohol intake: current substance use type: former substance user, painkillers and prescription drug current occupational status: other Travel in the last 8 weeks: None household members: other housing: house current occupational exposures/hazards: No <MELLISSA Arredondo - Last Filed: 12/19/23 14:34> ROS Obtained: Yes Systems reviewed as appropriate & no additional complaints except as documented Physical Exam <MELLISSA Arredondo - Last Filed: 12/19/23 14:34> General General appearance: alert and in no apparent distress Head Head exam: atraumatic and normal inspection Eye Eye exam: Present normal appearance, PERRL and EOMI ENT ENT exam: Present normal exam, normal oropharynx and mucous membranes moist Neck Neck exam: Present normal inspection, full ROM and trachea midline; Absent lymphadenopathy Chest Chest inspection: Present normal inspection and symmetric chest wall rise Respiratory Respiratory exam: Present normal lung sounds bilaterally; Absent accessory muscle use Cardiovascular Cardiovascular exam: Present regular rate, normal rhythm, normal heart sounds, +S1 and +S2 Abdominal Exam Abdominal exam: Present soft and normal bowel sounds; Absent tenderness, guarding or rebound Extremities Exam Extremities exam: Present normal inspection and full ROM Neurological Exam Neurological exam: Present alert, oriented X3 and CN II-XII intact Psychiatric Psychiatric exam: Present normal affect and normal mood Skin Skin exam: Present warm, dry and normal color Lymphatic Lymphatic Findings: no adenopathy <Juan Garcia MD - Last Filed: 12/19/23 14:35> Extremities Exam Extremities exam: Present tenderness (With external rotation and flexion) Medical Decision Making <MELLISSA Arredondo - Last Filed: 12/19/23 14:34> Vital Signs: 12/19/23 14:18 Temperature 97.9 F Temperature Source Oral Pulse Rate [Left Radial] 103 H Respiratory Rate 18 Blood Pressure [Right Arm] 142/93 H Blood Pressure Mean [Right Arm] 109 Blood Pressure Source [Right Arm] Automatic Cuff Blood Pressure Position [Right Arm] Sitting 02 Sat by Pulse Oximetry 98 Oxygen Delivery Method Room Air Medical Decision Narrative: In summary patient is a [age, sex] who presents to the emergency department for evaluation of [complaint]. Patient is [hemodynamically stable/unstable] upon arrival, [febrile/afebrile]. [Unremarkable physical exam, nonfocal exam versus focal remarkable exam]. Differential diagnosis includes [DDx]. Initial workup will be conducted with [hematologic labs, imaging, respiratory swab, describe workup]. Initial interventions include [crystalloid bolus, medications, p.o. challenge, etc.] initial workup reviewed by me [hematologic labs are remarkable for... Imaging remarkable for... Urinalysis remarkable for]. Upon repeat evaluation [patient had acceptable resolution of symptoms, had persistent pain for which additional interventions were conducted (describe interventions), tolerated p.o., was ambulatory, etc.]. Given this [patient is appropriate for discharge at this time and will be discharged with a prescription for... The case was discussed with hospital medicine regarding management and they will admit the patient their service for continued evaluation at this time... Etc.] Places where you can increase complexity: I informally interpreted the patient's chest x-ray or CT read and is remarkable for... 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 Ex: I considered chest x-ray on this patient however given that they have no oxygen requirement and are clear to auscultation all lung montague will be deferred. Social determinants of health: Given that patient is undomiciled increases complexity. Given that patient has polysubstance abuse compounds all aspects of care <Juan Garcia MD - Last Filed: 12/19/23 14:35> Medical Records Medical records reviewed: Yes I reviewed the patient's medical records. Pancho Inquiry Pt receiving controlled substance: No Pancho was queried for this patient: No Vital Signs: 12/19/23 14:18 Temperature 97.9 F Temperature Source Oral Pulse Rate [Left Radial] 103 H Respiratory Rate 18 Blood Pressure [Right Arm] 142/93 H Blood Pressure Mean [Right Arm] 109 Blood Pressure Source [Right Arm] Automatic Cuff Blood Pressure Position [Right Arm] Sitting 02 Sat by Pulse Oximetry 98 Oxygen Delivery Method Room Air Medical Decision Narrative: 53-year-old male history of left-sided temporal lobe glioma presenting with right elbow pain. Patient said that his neurologist who told him to come to the emergency department because the left side of the brain controls the right side of body and there may be a complication. Patient states that this has been h urting him for about a month. Its on the middle of his elbow hurts when he drinks coffee, plays golf, and externally rotates his arm. No trauma to the area. Neurovascularly intact. History was obtained via conversation with patient. On arrival, patient hemodynamically stable, alert, oriented x4, appropriate, GCS 15, moving all extremities spontaneously, pupils equal and reactive to light. Full physical exam performed and significant for tenderness medial aspect of right elbow epicondyle. Made worse with supination, external rotation, but range of motion intact and full. Neurovascularly intact. Differential includes medial epicondylitis, tendinitis, bursitis, among others. Because patient very well-appearing with stable chronicity and made worse with provocative motions, deemed appropriate for outpatient management with steroid. Because patient at baseline without signs or symptoms of clinical decompensation, deemed appropriate for discharge. Results were relayed to patient who voiced understanding and were agreeable to outpatient management and follow up. At the time of discharge the patient was hemodynamically stable, tolerating PO, and mobilizing appropriately. Critical Care <Juan Garcia MD - Last Filed: 12/19/23 14:35> Critical Care Time Critical Care Time: No
[2023-12-19 14:43] VITALS: BP 151/82; PULSE 101; RESP 17; TEMP 36.6; O2SAT 98
== END 2023-12-19 14:44 | disposition home or self-care (01) ==
PROVIDERS: Emergency Provider Emergency Medicine; PCP Physician Assistant
DX: M77.01 Medial epicondylitis, right elbow (principal); Z86.73 Personal history of transient ischemic attack (TIA), and cerebral infarction without residual deficits; Z87.891 Personal history of nicotine dependence
CPT/HCPCS: 99283

== ENCOUNTER 2024-01-01 11:30 | Emergency (ER) | payer OTHER, SELFPAY ==
[2024-01-01 11:46] VITALS: BP 144/91; PULSE 90; RESP 16; TEMP 36.9; O2SAT 99; BMI 25.0
--- NOTE | 2024-01-01 12:35 | ED_ITS ---
Discharge Plan Disposition Patient Disposition: Home, Self-Care Condition: Good Prescriptions Prescriptions: New ketorolac 10 mg tablet 10 mg PO Q8H PRN (Reason: pain) 2 Days Qty: 20 0RF No Action albuterol sulfate 90 mcg/actuation HFA aerosol inhaler See Rx Instructions .ROUTE .COMPLEX Qty: 8.5 3RF Dose Instruction: 2 PUFF INHALATION EVERY 4 TO 6 HOURS NEEDED FOR SHORTNESS OF BREATH OR WHEEZING Rx Instructions: 2 PUFF INHALATION EVERY 4 TO 6 HOURS NEEDED FOR SHORTNESS OF BREATH OR WHEEZING (DME) Blood Pressure Cuff Misc See Rx Instructions .Route Qty: 1 0RF Rx Instructions: As directed cholecalciferol (vitamin D3) 50 mcg (2,000 unit) capsule 50 mcg PO DAILY Qty: 90 3RF ergocalciferol (vitamin D2) 1,250 mcg (50,000 unit) capsule 1,250 mcg PO WEEKLY Qty: 14 3RF phenytoin sodium extended 100 mg capsule 100 mg PO QID 90 Days Qty: 360 1RF pantoprazole 40 mg tablet,delayed release (DR/EC) 40 mg PO DAILY Qty: 90 3RF prednisone 20 mg tablet 40 mg PO DAILY 5 Days Qty: 10 0RF Referrals Follow up/Referrals: Magy Joy PA [Primary Care Provider] - See instructions Macario Jean-Baptiste DO [Staff Physician] - See instructions Activity Restrictions/Add. Instructions Additional Instructions/Restrictions: You were evaluated in the emergency department today. 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 Please also take Tylenol. Follow-up closely with orthopedics. I provided you with information for Dr. Jean-Baptiste. Return to the emergency department for new or worsening symptoms. Clinical Impressions Clinical Impression: Epicondylitis elbow, medial Instructions Patient Instructions: DI for Medial Epicondylitis Discharge ED Provider: Cecilia Laura General Adult HPI General Chief complaint: Extremity Problem,Nontraumatic Stated complaint: Pain in R elbow Time Seen by Provider: 01/01/24 12:26 Mode of Arrival: Ambulatory Source of Information: Patient Limitations: No Limitations Description of Symptoms (Recalled from ER Triage Doc. by RN): pt c/o R elbow pain x1mon. pt denies injury. pt reports being seen here by a few wks ago. Pt was diagnosed with tennis elbow and given steroids. pt states his pain returned after completing his round of steroids. History of Present Illness HPI narrative: This patient is a 53-year-old male with a history of brain tumor for which she is followed in [place] presenting with concern for continued right elbow pain that has been going on for approximately a month. Patient denies any traumatic injury. He notes that he uses his arm a lot, as he is a high. He states he was seen here a few weeks ago by Dr. Garcia and was told that he has tennis elbow. He notes he was given steroids, which resolved his symptoms, however since finishing the steroids, his symptoms are returning. He states is mostly on the ulnar aspect of his arm and especially when his arm is flexed up near his face. He denies any new traumatic injuries, wounds, lesions, swelling, skin color changes, numbness, tingling, or other concerns. No other concerns noted at this time. Related Data Previous Rx's Medication Instructions Recorded albuterol sulfate 90 mcg/actuation See Rx Instructions .Route 10/25/22 aerosol inhaler .COMPLEX #8.5 grams [employer] medical supply #1 ea 10/25/22 (Blood Pressure Cuff) cholecalciferol (vitamin D3) 50 50 mcg PO DAILY #90 caps 10/13/23 mcg (2,000 unit) capsule ergocalciferol (vitamin D2) 1,250 1,250 mcg PO WEEKLY #14 caps 10/13/23 mcg (50,000 unit) capsule prednisone 20 mg tablet 40 mg (2 x 20 mg) PO DAILY 5 days 12/19/23 #10 tabs phenytoin sodium extended 100 mg 100 mg PO QID 3 months #360 caps 12/25/23 capsule pantoprazole 40 mg tablet,delayed 40 mg PO DAILY #90 tabs 12/27/23 release ketorolac 10 mg tablet 10 mg PO Q8H PRN pain 2 days #20 01/01/24 tabs Allergies Allergy/AdvReac Type Severity Reaction Status Date / Time No Known Allergies Allergy Verified 01/01/24 11:59 [facility] Disclaimer: The information contained in this section may have been updated after the patient was seen, as this information can be updated by other users. Medical History Degenerative joint disease of thoracic spine Thoracic compression fracture CVA (cerebral vascular accident) Amphetamine abuse Acute drug intoxication with delirium Social History Smoking Status: Never smoker alcohol intake: current substance use type: former substance user, painkillers and prescription drug current occupational status: other Travel in the last 8 weeks: None household members: other housing: house current occupational exposures/hazards: No ROS Obtained: Yes All systems reviewed & no additional complaints except as documented Physical Exam General General appearance: alert and in no apparent distress Head Head exam: atraumatic and normocephalic Eye Eye exam: Present normal appearance, PERRL and EOMI ENT ENT exam: Present normal exam, normal oropharynx, mucous membranes moist and normal external ear exam Neck Neck exam: Present normal inspection, full ROM and trachea midline; Absent tenderness Chest Chest inspection: Present normal inspection and symmetric chest wall rise; Absent tenderness Respiratory Respiratory exam: Present normal lung sounds bilaterally; Absent respiratory distress, wheezes, stridor or accessory muscle use Cardiovascular Cardiovascular exam: Present regular rate and normal rhythm Abdominal Exam Abdominal exam: Present soft; Absent distention, tenderness or guarding Extremities Exam Extremities exam: Present full ROM, tenderness (Tenderness over the medial epicondyle with no skin color changes, lesions, or other concerns.), normal capillary refill and other (Neurovascularly intact distally.); Absent edema Back Exam Back exam: Present normal inspection and full ROM; Absent tenderness Neurological Exam Neurological exam: Present alert, oriented X3, CN II-XII intact and normal gait; Absent motor sensory deficit Psychiatric Psychiatric exam: Present normal affect and normal mood Skin Skin exam: Present warm and dry Medical Decision Making Medical Records Medical records reviewed: Yes I reviewed the patient's medical records. Pancho Inquiry Pt receiving controlled substance: No Vital Signs: 01/01/24 11:46 01/01/24 12:52 Temperature 98.4 F 98.4 F Temperature Source Oral Pulse Rate 88 Pulse Rate [Left] 90 Respiratory Rate 16 17 Blood Pressure 130/85 Blood Pressure [Right Arm] 144/91 H Blood Pressure Mean [Right Arm] 108 Blood Pressure Source [Right Arm] Automatic Cuff Blood Pressure Position [Right Arm] Sitting 02 Sat by Pulse Oximetry 99 Oxygen Delivery Method Room Air Room Air Lab Data Lab results reviewed: Yes I reviewed the patient's lab results. Orders (Tests/Meds): ED MEDICATIONS Discontinued Medications Generic Name Dose Route Start Last Admin Trade Name Janis PRN Reason Stop Dose Admin Ketorolac Tromethamine 30 mg 01/01/24 12:31 01/01/24 12:42 Ketorolac 30mg/Ml Vial IM 01/01/24 12:32 30 mg ONCE ONE Administration Medical Decision Narrative: In summary, this patient is a 53-year-old male presenting to the Emergency Department for evaluation of atraumatic medial right elbow pain. Differential diagnoses considered include but are not limited to medial epicondylitis, tendinitis, arthritis, musculoskeletal strain/sprain. Ruling out the most morbid conditions drove assessment. On exam, the patient is neurovascularly intact with no obvious skin changes or lesions. 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 I feel he likely has medial epicondylitis. I feel he would benefit from close follow-up with orthopedics for evaluation and management. I considered prescribing him steroids again since his improved symptoms, however advised him that recurrent steroid use is not ideal because it comes with many side effects and risk of withdrawal symptoms. I am electing to prescribe nonsteroidal anti- inflammatories at this time. Patient was given IM Toradol here. Patient was deemed to be appropriate for discharge. Strict return precautions were given as well as information for follow-up with orthopedics. Patient was discharged in stable condition after all questions were answered. Critical Care Critical Care Time Critical Care Time: No
[2024-01-01] MEDS: KETOROLAC 30MG/ML VIAL 30 MG IM (12:42)
[2024-01-01 12:52] VITALS: BP 130/85; PULSE 88; RESP 17; TEMP 36.9; O2SAT 98
== END 2024-01-01 12:53 | disposition home or self-care (01) ==
PROVIDERS: Emergency Provider Emergency Medicine; PCP Physician Assistant
DX: M77.00 Medial epicondylitis, unspecified elbow (principal)
CPT/HCPCS: 96372; 99283